=== PATIENT | female | born 1935 | race Caucasian/White ===

== ENCOUNTER 2022-01-06 12:43 | Observation (INO) ==
[2022-01-06] MEDS ORDERED: SODIUM CHLORIDE 0.9% 1000ML 1,000 ML IV SCH ×2 (13:00→20:37)
--- NOTE | 2022-01-06 13:33 | XRay Report ---
XR chest 1V portable CLINICAL HISTORY: Sepsis. COMPARISON STUDY: No previous studies for comparison. FINDINGS: Trace left pleural effusion is noted. There is no pneumothorax. No consolidation to suggest pneumonia is noted. Cardiac size is normal. Mediastinal contours are unremarkable. Mild interstitial thickening is likely within normal limits. IMPRESSION: 1. Trace left pleural effusion. 2. No consolidation to suggest pneumonia. 3. Mild interstitial thickening, likely within normal limits. ACT 112: Negative or not required by law. Electronically signed by: Juan Carlos Rueda M.D. 01/06/2022 1:31 PM
[2022-01-06 13:51] LABS: INR 1.1 (0.9-1.1); Partial Thromboplastin Ratio 1.1; Partial Thromboplastin Time 29.2 Seconds (21.0-31.0); Prothrombin Time 12.1 Seconds (9.0-12.0)
[2022-01-06 14:04] LABS: Albumin Globulin Ratio 0.9 (0.9-2); Albumin Level 3.2 gm/dl (3.4-5.0); BUN Creatinine Ratio 20.4 (10-20); Bilirubin,Total 0.8 mg/dl (0.2-1.0); Calcium 8.3 mg/dl (8.5-10.1); Creatinine Clr Calc Pharmacy 14.6 ml/min; Est GFR (African American) 20.9 ml/min; Globulin 3.5 gm/dl (2.5-4.0); Magnesium 1.9 mg/dl (1.7-2.4); Potassium 3.3 mmol/L (3.5-5.1); Total Protein 6.7 gm/dl (6.0-8.3)
[2022-01-06 14:12] LABS: Hematocrit (blood only) 37.8 % (34.1-44.9); Hemoglobin 12.9 g/dl (12.0-16.0); Mean Corpuscular Hgb Conc 34.1 g/dL (32.0-36.0); Mean Corpuscular Volume 90.9 fL (80.0-100.0); Mean Platelet Volume 12.4 fL (9.4-12.3); Platelet Count 74 K/uL (130-400); RDW Coefficient of Variation 13.4 % (11.5-14.5); RDW Standard Deviation 45.1 fL (36.4-46.3); Red Blood Count 4.16 M/uL (3.93-5.22); White Blood Count 4.82 K/ul (4.8-10.8)
[2022-01-06 14:13] LABS: Anaplasmosis Smear(Rpt to DOH) Pos for Anaplasma
[2022-01-06 14:19] LABS: Basophils # (auto) 0.05 K/uL (0-0.2); Immature Granulocytes # (auto) 0.06 K/uL (0.00-0.02); Immature Granulocytes % (auto) 1.2 %; Lymphocytes # (auto) 1.12 K/uL (1.2-3.4); Lymphocytes % (auto) 23.2 %; Monocytes # (auto) 0.13 K/uL (0.24-0.82); Monocytes % (auto) 2.7 %; Neutrophils # (auto) 3.46 K/uL (1.4-6.5); Neutrophils % (auto) 71.9 %; Toxic Vacuolation 2+
[2022-01-06 14:57] LABS: Influenza A virus by PCR Negative (Neg); Influenza B virus by PCR Negative (Neg); RSV by PCR Negative (Neg); SARS CoV2 RNA(COVID-19) InHosp NEGATIVE (Negative)
[2022-01-06 15:17] LABS: Appearance Urine Clear (Clear); Bacteria Urine Automated Negative (Negative); Bilirubin Urine Negative (Negative); Blood Urine Negative (Negative); Color Urine Yellow; Epithelial Cell Urine Auto >30 /lpf (0-5); Glucose Urine UA Negative (Negative); Ketones Urine Negative (Negative); Leukocyte Esterase Urine Negative (Negative); Nitrite Urine Negative (Negative); Protein Urine Trace (Negative); RBC Urine Automated 0-4 /hpf (0-4); Specific Gravity Urine 1.009 (1.000-1.030); Urobilinogen Urine Negative (Negative)
[2022-01-06] MEDS ORDERED: SODIUM CHLORIDE 0.9% 1000ML 500 ML IV ONE (15:24)
[2022-01-06] MEDS ORDERED: DOXYCYCLINE HYCLATE 100 MG in DEXTROSE 5% 100 ML IV STA (15:24)
[2022-01-06] MEDS ORDERED: SODIUM CHLORIDE 0.9% 500 ML IV SCH (15:30)
--- NOTE | 2022-01-06 17:38 | Emergency Department Note ---
History of Present Illness General Chief complaint: Dehydration Stated complaint: DEHYDRATED, HIGH FEVER ON AND OFF, HYPERTENSION Time Seen by Provider: 01/06/22 12:53 History of Present Illness Provider complaint: Fever Onset (ago): week(s) 1 Radiation: non-radiation Associated symptoms: + fever/chills and + weakness; no cough, no headaches, no nausea/vomiting, no rash or no shortness of breath 86-year-old female presents emergency department with daughters for fever. Patient's daughters report that the patient has had fevers on and off for the last week. They report T-max of 102.8. They report the patient has chronic Lyme disease. They report that the patient was seen at a [facility] emergency department where they "did nothing". They report that they went to an urgent care today who told her that she was dehydrated and referred her to the emergency department. Home Medications Medication Instructions Recorded Confirmed Type levothyroxine 75 mcg tablet 75 mcg PO DAILY 01/06/22 01/06/22 History losartan 25 mg tablet 25 mg PO DAILY 01/06/22 01/06/22 History naproxen 500 mg tablet 500 mg PO BID 01/06/22 01/06/22 History sodium chloride 5 % eye drops 1 drp ophthalmic (eye) BID 01/06/22 01/06/22 History (Chay 128) Allergies Allergy/AdvReac Type Severity Reaction Status Date / Time erythromycin base Allergy Swelling Verified 01/06/22 15:33 of the Eye ibuprofen Allergy Rash Verified 01/06/22 15:33 sulfamethoxazole Allergy Rash Verified 01/06/22 15:31 [From Bactrim] trimethoprim [From Bactrim] Allergy Rash Verified 01/06/22 15:31 Past Med/Surg History Medical History HTN (hypertension) Hypothyroidism Lyme disease hx of chronic Lyme Surgical History No pertinent past surgical history Family History Father Macular degeneration Mother Macular degeneration Stroke Social History Smoking Status: Never smoker Hx Alcohol Use: No Feels Safe at Home: Yes Review of Systems A total of 10 systems reviewed and were otherwise negative Physical Exam Vital Signs Vital Signs - 24 hr 01/06/22 12:47 01/06/22 13:33 01/06/22 13:36 Temperature 36.5 C Temperature Source Skin Pulse Rate 89 Pulse Rate [Apical] 82 Respiratory Rate 18 18 Respiratory Effort / Characteristics Non-Labored Spontaneous Non-Labored Spontaneous Non-Labored Spontaneous Respiratory Depth Normal Normal Respiratory Pattern Regular Blood Pressure 78/44 L Blood Pressure [Left Arm] 104/51 L Blood Pressure Mean 55 Blood Pressure Mean [Left Arm] 68 Blood Pressure Position Sitting Blood Pressure Position [Left Arm] Lying Pulse Oximetry 95 98 Oxygen Delivery Method Room Air Room Air Sepsis Recent Fever Within 48 Hours No Sepsis New/Unexplained Change in Mental Status No Sepsis Action Taken by Nursing No Action Required 01/06/22 13:50 01/06/22 14:54 01/06/22 14:54 Temperature Temperature Source Pulse Rate Pulse Rate [Apical] 83 90 Respiratory Rate 18 18 Respiratory Effort / Characteristics Non-Labored Non-Labored Spontaneous Non-Labored Spontaneous Respiratory Depth Normal Normal Respiratory Pattern Blood Pressure Blood Pressure [Left Arm] 101/56 L 104/57 L Blood Pressure Mean Blood Pressure Mean [Left Arm] 71 72 Blood Pressure Position Blood Pressure Position [Left Arm] Lying Lying Pulse Oximetry 96 97 Oxygen Delivery Method Room Air Room Air Sepsis Recent Fever Within 48 Hours Sepsis New/Unexplained Change in Mental Status Sepsis Action Taken by Nursing 01/06/22 17:06 Temperature Temperature Source Pulse Rate Pulse Rate [Apical] 89 Respiratory Rate 16 Respiratory Effort / Characteristics Non-Labored Spontaneous Respiratory Depth Normal Respiratory Pattern Blood Pressure Blood Pressure [Left Arm] 89/53 L Blood Pressure Mean Blood Pressure Mean [Left Arm] 65 Blood Pressure Position Blood Pressure Position [Left Arm] Lying Pulse Oximetry 95 Oxygen Delivery Method Room Air Sepsis Recent Fever Within 48 Hours Sepsis New/Unexplained Change in Mental Status Sepsis Action Taken by Nursing Physical Exam HENT: Exam performed. -Head: Normocephalic and atraumatic. -Right Ear: External ear normal. No mastoid tenderness. -Left Ear: External ear normal. No mastoid tenderness. -Mouth/Throat: The oropharynx is clear and moist. No trismus in the jaw. No dental abscesses or uvula swelling. No oropharyngeal exudate or tonsillar abscesses. EYES: Conjunctivae and EOM are normal. Pupils are equal, round, and reactive to light. Right eye exhibits no discharge. Left eye exhibits no discharge. No scleral icterus. NECK: Normal range of motion. Neck supple. No JVD present. No spinous process tenderness present. No carotid bruit present. No rigidity. No tracheal deviation and normal range of motion present. No Brudzinski's sign and no Kernig's sign noted. CV: Normal rate, regular rhythm, normal heart sounds and intact distal pulses. T here is no peripheral edema. Palpable radial pulses bue. PULM/CHEST: Effort normal and breath sounds normal. No respiratory distress. No stridor. She has no wheezes. She has no rales. -Chest Wall: She exhibits no tenderness. ABD: The abdomen is soft. Bowel sounds are normal. She has no distension. No mass is present. There is no tenderness. There is no rebound, no guarding, no Fernandez's sign and no tenderness at McBurney's point. Rovsig negative MUSC/SKEL: Normal range of motion. There is no peripheral edema, tenderness or deformity. LYMPH: No cervical adenopathy. NEURO: Motor and sensation grossly intact. Course Course 1253: The patient was evaluated in room C7. A complete history and physical exam was performed Cardiac monitoring: An order was placed for continuous cardiac monitoring. The monitor shows a rate of 90 with sinus rhythm 1600: Vital signs stable. Patient hypotensive. Repeat IV fluids ordered for the patient. Labs show that the patient has acute kidney injury and hyponatremia. Patient's blood smear is positive for anaplasmosis. Patient be treated with IV doxycycline and admitted to the [facility] team. Para service notified. Administered Medications Sodium Chloride (Nss) 500 mls @ 125 mls/hr IV .Q4H CHANNING Stop: 02/05/22 15:29 Last Admin: 01/06/22 16:42 Dose: 125 mls/hr Documented By: DARLENE Doxycycline Hyclate 100 mg/ (Dextrose) 110 mls @ 50 mls/hr IV NOW [facility] Stop: 01/06/22 17:35 Last Admin: 01/06/22 15:44 Dose: 50 mls/hr Documented By: DARLENE Discontinued Medications Sodium Chloride (Nss 1000ml) 1,000 mls @ 999 mls/hr IV .Q1H1M [facility]ANNING Stop: 01/06/22 14:00 Last Infusion: 01/06/22 14:07 Dose: 0 mls/hr Documented By: Admin: 01/06/22 13:05 Dose: 999 mls/hr Documented By: MARGARITA Sodium Chloride (Nss 1000ml) 500 mls @ 999 mls/hr IV .Q31M ONE Stop: 01/06/22 15:54 Last Infusion: 01/06/22 16:08 Dose: 0 mls/hr Documented By: Admin: 01/06/22 15:31 Dose: 999 mls/hr Documented By: DARLENE Medical Decision Making Laboratory Data Result diagrams: 01/06/22 13:00 01/06/22 13:00 Lab Results 01/06/22 01/06/22 01/06/22 Range/Units 13:00 13:00 13:00 WBC 4.82 (4.8-10.8) K/ul RBC 4.16 (3.93-5.22) M/uL Hgb 12.9 (12.0-16.0) g/dl Hct 37.8 (34.1-44.9) % MCV 90.9 (80.0-100.0) fL MCH 31.0 (25.0-34.0) pg MCHC 34.1 (32.0-36.0) g/dL RDW Std Deviation 45.1 (36.4-46.3) fL RDW Coeff of Samantha 13.4 (11.5-14.5) % Plt Count 74 L (130-400) K/uL MPV 12.4 H (9.4-12.3) fL Immature Gran % (Auto) 1.2 % Neut % (Auto) 71.9 % Lymph % (Auto) 23.2 % Freestone % (Auto) 2.7 % Eos % (Auto) 0.0 % Baso % (Auto) 1.0 % Neut # (Auto) 3.46 (1.4-6.5) K/uL Lymph # (Auto) 1.12 L (1.2-3.4) K/uL Fre[place] # (Auto) 0.13 L (0.24-0.82) K/uL Eos # (Auto) 0.00 (0-0.50) K/uL Baso # (Auto) 0.05 (0-0.2) K/uL Immature Gran # (Auto) 0.06 H (0.00-0.02) K/uL Toxic Vacuolation 2+ PT 12.1 H (9.0-12.0) Seconds INR 1.1 (0.9-1.1) APTT 29.2 (21.0-31.0) Seconds PTT Ratio 1.1 Sodium (136-145) mmol/L Potassium (3.5-5.1) mmol/L Chloride (98-107) mmol/L Carbon Dioxide (21-32) mmol/L Anion Gap (3-11) BUN (6-23) mg/dl Creatinine (0.6-1.2) mg/dl Est Cr Clr Drug Dosing ml/min Est GFR ( Amer) ml/min Est GFR (Non-Af Amer) ml/min BUN/Creatinine Ratio (10-20) Glucose (70-99(Fasting)) mg/dl Osmolality (280-300) mOsm/kg Lactate (0.4-2.0) mmol/L Calcium (8.5-10.1) mg/dl Magnesium (1.7-2.4) mg/dl Total Bilirubin (0.2-1.0) mg/dl AST (13-39) U/L ALT (7-52) U/L Alkaline Phosphatase (34-104) U/L Total Protein (6.0-8.3) gm/dl Albumin (3.4-5.0) gm/dl Globulin (2.5-4.0) gm/dl Albumin/Globulin Ratio (0.9-2) Procalcitonin 0.61 H (0-0.5) ng/ml Urine Color Urine Appearance (Clear) Urine pH (4.5-7.5) Ur Specific [place] (1.000-1.030) Urine Protein (Negative) Urine Glucose (UA) (Negative) Urine Ketones (Negative) Urine Blood (Negative) Urine Nitrite (Negative) Urine Bilirubin (Negative) Urine Urobilinogen (Negative) Ur Leukocyte Esterase (Negative) Urine WBC (Auto) (0-5) /hpf Urine RBC (Auto) (0-4) /hpf U Hyaline Cast (Auto) (0-5) /lpf U Epithel Cells (Auto) (0-5) /lpf Urine Bacteria (Auto) (Negative) Anaplasma Smear See Comment A Anaplasma Comment Pos for Anaplasma SARS-CoV-2 (PCR) (Negative) Influenza Type A (PCR) (Neg) Influenza Type B (PCR) (Neg) RSV (RT-PCR) (Neg) 01/06/22 01/06/22 01/06/22 Range/Units 13:00 13:00 14:01 WBC (4.8-10.8) K/ul RBC (3.93-5.22) M/uL Hgb (12.0-16.0) g/dl Hct (34.1-44.9) % MCV (80.0-100.0) fL MCH (25.0-34.0) pg MCHC (32.0-36.0) g/dL RDW Std Deviation (36.4-46.3) fL RDW Coeff of Samantha (11.5-14.5) % Plt Count (130-400) K/uL MPV (9.4-12.3) fL Immature Gran % (Auto) % Neut % (Auto) % Lymph % (Auto) % Freestone % (Auto) % Eos % (Auto) % Baso % (Auto) % Neut # (Auto) (1.4-6.5) K/uL Lymph # (Auto) (1.2-3.4) K/uL Fre[place] # (Auto) (0.24-0.82) K/uL Eos # (Auto) (0-0.50) K/uL Baso # (Auto) (0-0.2) K/uL Immature Gran # (Auto) (0.00-0.02) K/uL Toxic Vacuolation PT (9.0-12.0) Seconds INR (0.9-1.1) APTT (21.0-31.0) Seconds PTT Ratio Sodium 127 L (136-145) mmol/L Potassium 3.3 L (3.5-5.1) mmol/L Chloride 95 L (98-107) mmol/L Carbon Dioxide 23 (21-32) mmol/L Anion Gap 9 (3-11) BUN 48 H (6-23) mg/dl Creatinine 2.35 H (0.6-1.2) mg/dl Est Cr Clr Drug Dosing 14.6 ml/min Est GFR ( Amer) 20.9 ml/min Est GFR (Non-Af Amer) 18.0 ml/min BUN/Creatinine Ratio 20.4 H (10-20) Glucose 211 H (70-99(Fasting)) mg/dl Osmolality 285 (280-300) mOsm/kg Lactate (0.4-2.0) mmol/L Calcium 8.3 L (8.5-10.1) mg/dl Magnesium 1.9 (1.7-2.4) mg/dl Total Bilirubin 0.8 (0.2-1.0) mg/dl AST 53 H (13-39) U/L ALT 31 (7-52) U/L Alkaline Phosphatase 91 (34-104) U/L Total Protein 6.7 (6.0-8.3) gm/dl Albumin 3.2 L (3.4-5.0) gm/dl Globulin 3.5 (2.5-4.0) gm/dl Albumin/Globulin Ratio 0.9 (0.9-2) Procalcitonin (0-0.5) ng/ml Urine Color Urine Appearance (Clear) Urine pH (4.5-7.5) Ur Specific [place] (1.000-1.030) Urine Protein (Negative) Urine Glucose (UA) (Negative) Urine Ketones (Negative) Urine Blood (Negative) Urine Nitrite (Negative) Urine Bilirubin (Negative) Urine Urobilinogen (Negative) Ur Leukocyte Esterase (Negative) Urine WBC (Auto) (0-5) /hpf Urine RBC (Auto) (0-4) /hpf U Hyaline Cast (Auto) (0-5) /lpf U Epithel Cells (Auto) (0-5) /lpf Urine Bacteria (Auto) (Negative) Anaplasma Smear Anaplasma Comment SARS-CoV-2 (PCR) NEGATIVE (Negative) Influenza Type A (PCR) Negative (Neg) Influenza Type B (PCR) Negative (Neg) RSV (RT-PCR) Negative (Neg) 01/06/22 01/06/22 Range/Units 14:51 15:43 WBC (4.8-10.8) K/ul RBC (3.93-5.22) M/uL Hgb (12.0-16.0) g/dl Hct (34.1-44.9) % MCV (80.0-100.0) fL MCH (25.0-34.0) pg MCHC (32.0-36.0) g/dL RDW Std Deviation (36.4-46.3) fL RDW Coeff of Samantha (11.5-14.5) % Plt Count (130-400) K/uL MPV (9.4-12.3) fL Immature Gran % (Auto) % Neut % (Auto) % Lymph % (Auto) % [place] % (Auto) % Eos % (Auto) % Baso % (Auto) % Neut # (Auto) (1.4-6.5) K/uL Lymph # (Auto) (1.2-3.4) K/uL [place] # (Auto) (0.24-0.82) K/uL Eos # (Auto) (0-0.50) K/uL Baso # (Auto) (0-0.2) K/uL Immature Gran # (Auto) (0.00-0.02) K/uL Toxic Vacuolation PT (9.0-12.0) Seconds INR (0.9-1.1) APTT (21.0-31.0) Seconds PTT Ratio Sodium (136-145) mmol/L Potassium (3.5-5.1) mmol/L Chloride (98-107) mmol/L Carbon Dioxide (21-32) mmol/L Anion Gap (3-11) BUN (6-23) mg/dl Creatinine (0.6-1.2) mg/dl Est Cr Clr Drug Dosing ml/min Est GFR ( Amer) ml/min Est GFR (Non-Af Amer) ml/min BUN/Creatinine Ratio (10-20) Glucose (70-99(Fasting)) mg/dl Osmolality (280-300) mOsm/kg Lactate 1.2 (0.4-2.0) mmol/L Calcium (8.5-10.1) mg/dl Magnesium (1.7-2.4) mg/dl Total Bilirubin (0.2-1.0) mg/dl AST (13-39) U/L ALT (7-52) U/L Alkaline Phosphatase (34-104) U/L Total Protein (6.0-8.3) gm/dl Albumin (3.4-5.0) gm/dl Globulin (2.5-4.0) gm/dl Albumin/Globulin Ratio (0.9-2) Procalcitonin (0-0.5) ng/ml Urine Color Yellow Urine Appearance Clear (Clear) Urine pH 5.0 (4.5-7.5) Ur Specific [place] 1.009 (1.000-1.030) Urine Protein Trace H (Negative) Urine Glucose (UA) Negative (Negative) Urine Ketones Negative (Negative) Urine Blood Negative (Negative) Urine Nitrite Negative (Negative) Urine Bilirubin Negative (Negative) Urine Urobilinogen Negative (Negative) Ur Leukocyte Esterase Negative (Negative) Urine WBC (Auto) 1-5 (0-5) /hpf Urine RBC (Auto) 0-4 (0-4) /hpf U Hyaline Cast (Auto) 10-30 H (0-5) /lpf U Epithel Cells (Auto) >30 H (0-5) /lpf Urine Bacteria (Auto) Negative (Negative) Anaplasma Smear Anaplasma Comment SARS-CoV-2 (PCR) (Negative) Influenza Type A (PCR) (Neg) Influenza Type B (PCR) (Neg) RSV (RT-PCR) (Neg) Imaging Data Radiologist's Impression: Chest X-Ray 01/06/22 12:54 XR chest 1V portable CLINICAL HISTORY: Sepsis. COMPARISON STUDY: No previous studies for comparison. FINDINGS: Trace left pleural effusion is noted. There is no pneumothorax. No consolidation to suggest pneumonia is noted. Cardiac size is normal. Mediastinal contours are unremarkable. Mild interstitial thickening is likely within normal limits. IMPRESSION: 1. Trace left pleural effusion. 2. No consolidation to suggest pneumonia. 3. Mild interstitial thickening, likely within normal limits. ACT 112: Negative or not required by law. Electronically signed by: Juan Carlos Rueda M.D. 01/06/2022 1:31 PM [facility] Narrative 1253: The patient was evaluated in room C7. A complete history and physical exam was performed Cardiac monitoring: An order was placed for continuous cardiac monitoring. The monitor shows a rate of 90 with sinus rhythm 1600: Vital signs stable. Patient hypotensive. Repeat IV fluids ordered for the patient. Labs show that the patient has acute kidney injury and hyponatremia. Patient's blood smear is positive for anaplasmosis. Patient be treated with IV doxycycline and admitted to the [facility] team. Para service notified. Impression & Plan Anaplasmosis, Hyponatremia, CASTILLO (acute kidney injury) Discharge Plan Visit Data Chief Complaint: Dehydration Stated Complaint: DEHYDRATED, HIGH FEVER ON AND OFF, HYPERTENSION ED Provider: Hipolito Dyer Discharge Problem: Anaplasmosis, Hyponatremia, CASTILLO (acute kidney injury) Patient Disposition: Admitted As Inpatient Forms Stand Alone Forms: [facility] Prescriptions Prescriptions: No Action sodium chloride [Chay 128] 5 % Drops 1 drp OPHTHALMIC (EYE) BID levothyroxine 75 mcg Tablet 75 mcg PO DAILY losartan 25 mg Tablet 25 mg PO DAILY naproxen 500 mg Tablet 500 mg PO BID Referrals Referrals: PCP,NO [Primary Care Provider] -
--- NOTE | 2022-01-06 17:49 | History & Physical Report ---
Date of Service January 06, 2022 By CMS guidelines, a determination that the admission or continued stay is not medically necessary has been made by a member of the UR committee and a physician for this hospital stay, therefore a Code 44 will be completed and the Inpatient admission will be changed to outpatient. Assessment & Plan (1) CASTILLO (acute kidney injury): (2) Hyponatremia: (3) Hypokalemia: Plan: Admit to [facility] Patient presenting from home with reports of worsening right hip pain, generalized weakness, poor appetite, nausea In the ED, labs show Na+ 127, K+ 3.3, creatinine 2.3, + anaplasma smear. Patient denies history of chronic kidney disease, no outside records available to review. CASTILLO likely multifactorial due to poor p.o. intake in combination with use of naproxen and losartan. Likely hypovolemic hyponatremia in the setting of poor p.o. intake. Check urine and serum osmolality, urine electrolytes NSS @ 80/hr, serial BMPs Replace potassium Hold losartan (4) Hypotension: Plan: BP 78/44 on presentation Likely due to hypovolemia Improved with IVF Continue IVF, hold losartan (5) Anaplasmosis: Plan: + Anaplasma smear with mild thrombocytopenia and mildly elevated AST Check Lyme Doxycycline 100mg BID (6) Right hip pain: Plan: Per patient, she had XR at outside hospital that was negative for fracture but showed severe osteoarthritis CT right hip to evaluate for possible fracture Ortho consult for possible injection (7) HTN (hypertension): Plan: Due to hypotension, CASTILLO hold losartan (8) Hypothyroidism: Plan: Continue levothyroxine (9) DVT prophylaxis: Plan: SCDs due to thrombocytopenia History of Present Illness Chief Complaint: Weakness, nausea Primary Care Provider: [facility] 86-year-old female with PMH HTN, hypothyroidism, chronic Lyme disease, and other problems listed below who presents the ED for evaluation of generalized weakness and nausea. Patient reports current illness began about 1 week ago when she woke up and had severe right hip pain. Pain has persisted throughout the week. Patient also notes worsening generalized weakness. She has slid off of the couch due to weakness a few times this week. No falls or specific trauma to the right hip. Patient has had a very poor appetite and associated nausea. Denies vomiting and abdominal pain. Was seen at another hospital 3 days ago and diagnosed with arthritis within the right hip. Patient received a Toradol injection with improvement in right hip pain. Patient reports having a fever for a few days earlier in this month, that has since resolved however over the past 1 week, patient's fevers have returned. Patient denies known tick bite however [place] and spends a lot of time outside. Patient denies chest pain or shortness of breath. No lightheadedness or dizziness. Denies urinary symptoms. Upon arrival to the ED, patient was hypotensive at 78/44, this improved after IVF. Labs show thrombocytopenia with platelet 74K, Na+ 127, K+ 3.3, creatinine 2.3, AST 53. Anaplasma smear is positive. Patient was given IVF and IV doxycycline. Allergies Allergy/AdvReac Type Severity Reaction Status Date / Time erythromycin base Allergy Swelling Verified 01/06/22 15:33 of the Eye ibuprofen Allergy Rash Verified 01/06/22 15:33 sulfamethoxazole Allergy Rash Verified 01/06/22 15:31 [From Bactrim] trimethoprim [From Bactrim] Allergy Rash Verified 01/06/22 15:31 Home Medications Medication Instructions Recorded Confirmed Type levothyroxine 75 mcg tablet 75 mcg PO DAILY 01/06/22 01/06/22 History losartan 25 mg tablet 25 mg PO DAILY 01/06/22 01/06/22 History sodium chloride 5 % eye drops 1 drp ophthalmic (eye) BID 01/06/22 01/06/22 History (Chay 128) acetaminophen 325 mg tablet 650 mg PO Q8H PRN fever or pain 01/07/22 Rx #30 tabs doxycycline hyclate 100 mg tablet 100 mg PO BID 10 days #20 tabs 01/07/22 Rx lidocaine 5 % topical patch 1 patch transdermal QAM pain #10 ea 01/07/22 Rx Past Med/Surg History Medical History HTN (hypertension) Hypothyroidism Lyme disease hx of chronic Lyme Surgical History No pertinent past surgical history Family History Father Macular degeneration Mother Macular degeneration Stroke Social History Smoking Status: Never smoker Second Hand Exposure: No; Hx Alcohol Use: No Hx Substance Use: No Preferred Language: Monegasque Communication Ability: Effective Engagement Quality Consultant Required: No Beliefs That Will Affect Care: None Current Living Situation: Spouse Feels Safe at Home: Yes Assistive Devices: Cane and Walker Review of Systems Review of Systems: ROS per HPI, all other systems reviewed and negative Physical Exam Constitutional: WD/WN, vitals as above Eyes: PERRL, conjunctivae normal, anicteric sclerae ENMT: external ear and nose normal, oropharynx normal Respiratory: normal respiratory effort, lungs clear to auscultation Cardiovascular: Rate/Rhythm: regular rate and regular rhythm Vessels: normal peripheral pulses Extremities: no edema Gastrointestinal (Abdomen): normal bowel sounds, soft, nontender, no hepatosplenomegaly Musculoskeletal: Extremities: no cyanosis and no clubbing Generally weak throughout, has some difficulty sitting up in bed unassisted, however observed patient walking back from bathroom with walker Skin: no rashes, warm and dry Neurologic: PERRL, EOMI, accommodation nl, no face palsy, no dysarthria Psychiatric: A+Ox3, euthymic affect Results & Data Results & Data ([facility]) Vital Signs (Past 12 Hours) Vital Signs Temp Pulse Pulse Resp BP BP Pulse Ox 01/06/22 17:06 89 16 89/53 L 95 01/06/22 14:54 90 18 104/57 L 97 01/06/22 13:50 83 18 101/56 L 96 01/06/22 13:33 82 18 104/51 L 98 01/06/22 12:47 36.5 C 89 18 78/44 L 95 O2 Del Method 01/06/22 17:06 Room Air 01/06/22 14:54 Room Air 01/06/22 13:50 Room Air 01/06/22 13:33 Room Air 01/06/22 12:47 Room Air Laboratory Results Short CBC 01/06/22 Range/Units 13:00 WBC 4.82 (4.8-10.8) K/ul Hgb 12.9 (12.0-16.0) g/dl Hct 37.8 (34.1-44.9) % Plt Count 74 L (130-400) K/uL BMP 01/06/22 13:00 Sodium 127 L Potassium 3.3 L Chloride 95 L Carbon Dioxide 23 BUN 48 H Creatinine 2.35 H Glucose 211 H Calcium 8.3 L Liver Function 01/06/22 Range/Units 13:00 Total Bilirubin 0.8 (0.2-1.0) mg/dl AST 53 H (13-39) U/L ALT 31 (7-52) U/L Alkaline Phosphatase 91 (34-104) U/L Albumin 3.2 L (3.4-5.0) gm/dl Urine 01/06/22 Range/Units 14:51 Urine Color Yellow Urine Appearance Clear (Clear) Urine pH 5.0 (4.5-7.5) Ur Specific [place] 1.009 (1.000-1.030) Urine Protein Trace H (Negative) Urine Glucose (UA) Negative (Negative) Diagnostic Findings Short CBC 01/06/22 Range/Units 13:00 WBC 4.82 (4.8-10.8) K/ul Hgb 12.9 (12.0-16.0) g/dl Hct 37.8 (34.1-44.9) % Plt Count 74 L (130-400) K/uL BMP 01/06/22 13:00 Sodium 127 L Potassium 3.3 L Chloride 95 L Carbon Dioxide 23 BUN 48 H Creatinine 2.35 H Glucose 211 H Calcium 8.3 L Liver Function 01/06/22 Range/Units 13:00 Total Bilirubin 0.8 (0.2-1.0) mg/dl AST 53 H (13-39) U/L ALT 31 (7-52) U/L Alkaline Phosphatase 91 (34-104) U/L Albumin 3.2 L (3.4-5.0) gm/dl Urine 01/06/22 Range/Units 14:51 Urine Color Yellow Urine Appearance Clear (Clear) Urine pH 5.0 (4.5-7.5) Ur Specific [place] 1.009 (1.000-1.030) Urine Protein Trace H (Negative) Urine Glucose (UA) Negative (Negative) Code Status & VTE Plan Code Status Patient is a full code as per my discussion with her. VTE Prophylaxis Plan VTE Prophylaxis will be ordered: Yes Supervising Physician Co-Signing Physician Notes Pt was seen and examined. Agreed with Beverly CAPONE exam, assessment and plan. 86-year-old female with PMH HTN, hypothyroidism, chronic Lyme disease presents to the ED for evaluation of generalized weakness and nausea. Pt said symptoms have been going for about 1 week when she woke up with severe right hip pain. She said that she has been feeling week with poor appetite. She said that she had a fever few days ago. She was seen at another ER 3 days ago where she got a toradol injection to her right hip> she was discharged on Naproxen. She said that pain and weakness are worsening. Lab on admission with with low platelet 74K, Na+ 127, K+ 3.3, creatinine 2.3, AST 53. Anaplasma smear is positive. Patient was given IVF and IV doxycycline. Outpatient Hip Xray showed severe arthritis within the right hip. Will continue pain control. Continue IVF. Continue monitor electrolytes. Will consult ortho and PT/OT. Fall precaution. Will hod Losartan and avoid nephrotoxic agents. Continue monitor closely. MD Christel
[2022-01-06 17:56] LABS: Urine Chloride < 15 mmol/L; Urine Potassium 15.4 mmol/L; Urine Sodium 11 mmol/L
[2022-01-06 18:03] LABS: Lyme Ab IgG w/WB Rflx Positive (Negative); Lyme Ab IgM w/WB Rflx Positive (Negative)
--- NOTE | 2022-01-06 18:31 | CT Scan Report ---
RIGHT HIP CT WITHOUT CONTRAST CLINICAL HISTORY: Right hip pain. TECHNIQUE: Axial images of the right hip were obtained without IV contrast. Sagittal and coronal sofya nstructions were viewed. Automated exposure control was utilized for the study. A dose lowering vira hnique was utilized adhering to the principles of ALARA. COMPARISON STUDY: No previous studies for comparison. FINDINGS: A few suspected calcified fibroids are incidentally noted. Marked axial joint space narrowi ng of the right hip is noted with extensive subchondral sclerosis and cystic change within the acetab ulum and right femoral head. Acetabular protrusio deformity is noted. No acute fracture is present. T here are no suspicious osseous lesions. Adjacent soft tissues are unremarkable by CT. No evidence for avascular necrosis of the right femoral head. IMPRESSION: 1. 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 2. No acute fracture. ACT 112: Negative or not required by law. Electronically signed by: Juan Carlos Rueda M.D. 01/06/2022 6:29 PM
[2022-01-06] MEDS ORDERED: MoRPHine SULFATE 4 MG/ML 1 ML CARP\\VIAL IV PRN (20:37)
[2022-01-06] MEDS ORDERED: POTASSIUM CHLORIDE CRTAB 20 MEQ TABCR PO ONE (20:37)
[2022-01-06] MEDS ORDERED: MoRPHine SULFATE 2 MG/ML CARP IV PRN (20:37)
[2022-01-06] MEDS ORDERED: ACETAMINOPHEN 325 MG TAB PO PRN (20:37)
[2022-01-06 21:17] LABS: BUN Creatinine Ratio 30.1 (10-20); Calcium 7.4 mg/dl (8.5-10.1); Creatinine Clr Calc Pharmacy 23.4 ml/min; Est GFR (African American) 37.1 ml/min; Potassium 3.2 mmol/L (3.5-5.1)
[2022-01-06] MEDS: ACETAMINOPHEN 500 MG TAB PO SCH (21:40)
[2022-01-07] MEDS ORDERED: SODIUM CHLORIDE 0.9% 1000ML 1,000 ML IV ONE ×2 (01:10)
[2022-01-07] MEDS ORDERED: POTASSIUM CHLORIDE CRTAB 20 MEQ TABCR PO STA (01:24)
[2022-01-07] MEDS ORDERED: POTASSIUM CHLORIDE PWD 20 MEQ PACK PO STA (02:41)
[2022-01-07] MEDS: DOXYCYCLINE HYCLATE 100 MG in DEXTROSE 5% 100 ML IV SCH ×2 (04:27→15:41)
--- NOTE | 2022-01-07 05:53 | Electrocardiogram Report ---
Test Reason : Blood Pressure : / mmHG Vent. Rate : 082 BPM Atrial Rate : 054 BPM P-R Int : 272 ms QRS Dur : 156 ms QT Int : 452 ms P-R-T Axes : 000 -06 131 degrees QTc Int : 528 ms Possible Sinus rhythm with 1st degree A-V block Left bundle branch block Abnormal ECG No previous ECGs available Confirmed by Mohit Mena ([id number]) on 01/07/2022 5:53:21 AM Referred By: Confirmed By:Mohit Mena
[2022-01-07] MEDS: ACETAMINOPHEN 500 MG TAB PO SCH ×2 (06:04→13:35)
[2022-01-07] MEDS ORDERED: LEVOTHYROXINE SODIUM 75 MCG TABLET PO SCH (06:30)
[2022-01-07 07:59] LABS: Hemoglobin 10.7 g/dl (12.0-16.0); Mean Corpuscular Hemoglobin 30.8 pg (25.0-34.0); Mean Corpuscular Hgb Conc 34.5 g/dL (32.0-36.0); Mean Corpuscular Volume 89.3 fL (80.0-100.0); Platelet Count 68 K/uL (130-400); RDW Coefficient of Variation 13.6 % (11.5-14.5); RDW Standard Deviation 44.7 fL (36.4-46.3); Red Blood Count 3.47 M/uL (3.93-5.22); White Blood Count 5.27 K/ul (4.8-10.8)
[2022-01-07] MEDS ORDERED: LIDOCAINE 5% 1 PATCH TD SCH (09:00)
[2022-01-07 09:05] LABS: Potassium 4.4 mmol/L (3.5-5.1)
[2022-01-07 09:06] LABS: BUN Creatinine Ratio 28.5 (10-20); Calcium 7.9 mg/dl (8.5-10.1); Creatinine Clr Calc Pharmacy 26.3 ml/min; Est GFR (African American) 42.7 ml/min; Est GFR (Non-African American) 36.9 ml/min
--- NOTE | 2022-01-07 10:52 | Orthopedic Consultation ---
Date of Service January 07, 2022 Assessment & Plan (1) Osteoarthritis of right hip: We discussed diagnosis and treatment options at bedside. We can treat her with oral medications, intra-articular injections, or hip replacement surgery. Her hip is already feeling much better. An intra-articular hip injection would need to be done in our office. It is done under ultrasound guidance. Given the level of arthritis, symptomatic pain relief would likely be very temporary. We could also consider hip replacement surgery, however, she has already worn away much of the medial wall of her acetabulum and a replacement would be a little more risky. At this point she is feeling better and she said she wants to think about her options. I told her I be happy to see her in the office at any time. I would be able to either offer her an intra-articular hip injection or possibly hip replacement surgery, but we have to talk about the risks and benefits of each. She is orthopedically stable for discharge when medically ready. History of Present Illness Reason for Consultation: Osteoarthritis of the right hip. Requesting Physician: . Attending Physician: Rhett Kearney MD Trisha is a pleasant 86-year-old female who is been dealing with years of worsening right hip pain. She lives in a house with her and normally ambulates without assistance. Yesterday, she was having severe pain in her right groin. She has recently seen an orthopedic provider about this and was diagnosed with arthritis of the right hip. Her pain yesterday was severe enough that she came to the emergency room. A CT scan of the hip showed advanced osteoarthritis. She was admitted to the medical service. Overall her hip is already feeling better. She says she has been up and walking to the bathroom without much difficulty. Orthopedics was consulted to evaluate and treat.. Allergies Allergy/AdvReac Type Severity Reaction Status Date / Time erythromycin base Allergy Swelling Verified 01/06/22 15:33 of the Eye ibuprofen Allergy Rash Verified 01/06/22 15:33 sulfamethoxazole Allergy Rash Verified 01/06/22 15:31 [From Bactrim] trimethoprim [From Bactrim] Allergy Rash Verified 01/06/22 15:31 Home Medications Medication Instructions Recorded Confirmed Type levothyroxine 75 mcg tablet 75 mcg PO DAILY 01/06/22 01/06/22 History losartan 25 mg tablet 25 mg PO DAILY 01/06/22 01/06/22 History naproxen 500 mg tablet 500 mg PO BID 01/06/22 01/06/22 History sodium chloride 5 % eye drops 1 drp ophthalmic (eye) BID 01/06/22 01/06/22 History (Chay 128) Past Med/Surg History Medical History HTN (hypertension) Hypothyroidism Lyme disease hx of chronic Lyme Surgical History No pertinent past surgical history Family History Father Macular degeneration Mother Macular degeneration Stroke Social History Smoking Status: Never smoker Second Hand Exposure: No; Do You Dip or Chew Tobacco: No; Hx Alcohol Use: No Hx Substance Use: No Preferred Language: Mongolian Communication Ability: Effective Barrel Turner Required: No Beliefs That Will Affect Care: None Current Living Situation: Spouse Other Information That Helps Us Care for You: No Feels Safe at Home: Yes Safety Concerns: Feels Safe At This Time Assistive Devices: Glasses and Walker Assistive Devices Comment: reading glasses Review of Systems All systems reviewed & are unremarkable except as noted in HPI & below. Physical Exam On physical examination of the right hip, she has pain mostly in the right gluteal region. She does not have much pain laterally. She has active dorsiflexion plantarflexion of her right ankle. She has pain with internal and external rotation of her right hip.. Constitutional WD/WN, vitals as above Eyes PERRL, conjunctivae normal, anicteric sclerae ENMT external ear and nose normal, oropharynx normal Neck trachea midline, no thyromegaly Respiratory normal respiratory effort, lungs clear to auscultation Cardiovascular RRR, no murmur, no edema Gastrointestinal (Abdomen) normal bowel sounds, soft, nontender, no hepatosplenomegaly Skin no rashes, warm and dry Psychiatric A+Ox3, euthymic affect Results & Data Results & Data Laboratory Results . Diagnostic Findings CT scan of the right hip was reviewed and it showed advanced osteoarthritis with joint space narrowing, osteophyte formation, and [id number] articulation. There is severe thinning of the medial wall of the acetabulum.. PG Care Time/CCT Total # of Minutes Spent Total Time Spent with Patient: Total time spent is greater than 50% in coordination of care (as documented) at patient's floor/unit and/or counseling patient: Coding Level of Care Code 56448 Inpt Consult Level 4 Diagnoses Osteoarthritis of right hip M16.11
--- NOTE | 2022-01-07 17:53 | Discharge Summary ---
Date of Service January 07, 2022 Admission HPI Per Admitting Provider 86-year-old female with PMH HTN, hypothyroidism, chronic Lyme disease, and other problems listed below who presents the ED for evaluation of generalized weakness and nausea. Patient reports current illness began about 1 week ago when she woke up and had severe right hip pain. Pain has persisted throughout the week. Patient also notes worsening generalized weakness. She has slid off of the couch due to weakness a few times this week. No falls or specific trauma to the right hip. Patient has had a very poor appetite and associated nausea. Denies vomiting and abdominal pain. Was seen at another hospital 3 days ago and diagnosed with arthritis within the right hip. Patient received a Toradol injection with improvement in right hip pain. Patient reports having a fever for a few days earlier in this month, that has since resolved however over the past 1 week, patient's fevers have returned. Patient denies known tick bite [place] and spends a lot of time outside. P atient denies chest pain or shortness of breath. No lightheadedness or dizziness. Denies urinary symptoms. Upon arrival to the ED, patient was hypotensive at 78/44, this improved after IVF. Labs show thrombocytopenia with platelet 74K, Na+ 127, K+ 3.3, creatinine 2.3, AST 53. Anaplasma smear is positive. Patient was given IVF and IV doxycycline. Admission Exam Per Admitting Provider Constitutional: WD/WN, vitals as above Eyes: PERRL, conjunctivae normal, anicteric sclerae ENMT: external ear and nose normal, oropharynx normal Respiratory: normal respiratory effort, lungs clear to auscultation Cardiovascular: Rate/Rhythm: regular rate and regular rhythm Vessels: normal peripheral pulses Extremities: no edema Gastrointestinal (Abdomen): normal bowel sounds, soft, nontender, no hepatosplenomegaly Musculoskeletal: Extremities: no cyanosis and no clubbing Generally weak throughout, has some difficulty sitting up in bed unassisted, however observed patient walking back from bathroom with walker Skin: no rashes, warm and dry Neurologic: PERRL, EOMI, accommodation nl, no face palsy, no dysarthria Psychiatric: A+Ox3, euthymic affect Principal Diagnosis (1) CASTILLO (acute kidney injury): (2) Hyponatremia: (3) Hypokalemia: (4) Hypotension: (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 (7) HTN (hypertension): (8) Hypothyroidism: Discharge Exam General- No acute distress Head- atraumatic Eyes- PERRL, EOMI, ENT- oropharynx clear Neck- supple, no JVD Lungs- clear to auscultation Heart- regular rhythm; no murmur Abdomen- normal bowel sounds, soft, nontender Extremities- no calf tenderness Neuro- alert, oriented x 3; PERRL, EOMI; no facial palsy; no dysarthria Skin- warm & dry Discharge Data Allergies Allergy/AdvReac Type Severity Reaction Status Date / Time erythromycin base Allergy Swelling Verified 01/06/22 15:33 of the Eye ibuprofen Allergy Rash Verified 01/06/22 15:33 sulfamethoxazole Allergy Rash Verified 01/06/22 15:31 [From Bactrim] trimethoprim [From Bactrim] Allergy Rash Verified 01/06/22 15:31 Consultations 01/06/22 15:25 ED Decision to Admit Stat 01/06/22 20:37 Consult Orthopedic Surgery Routine Ordered Studies 01/06/22 17:15 CT hip RT wo con Routine RIGHT HIP CT WITHOUT CONTRAST CLINICAL HISTORY: Right hip pain. TECHNIQUE: Axial images of the right hip were obtained without IV contrast. Sagittal and coronal reconstructions were viewed. Automated exposure control was utilized for the study. A dose lowering technique was utilized adhering to the principles of ALARA. COMPARISON STUDY: No previous studies for comparison. FINDINGS: A few suspected calcified fibroids are incidentally noted. Marked axial joint space narrowing of the right hip is noted with extensive subchondral sclerosis and cystic change within the acetabulum and right femoral head. Acetabular protrusio deformity is noted. No acute fracture is present. There are no suspicious osseous lesions. Adjacent soft tissues are unremarkable by CT. No evidence for avascular necrosis of the right femoral head. IMPRESSION: 1. 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 2. No acute fracture. ACT 112: Negative or not required by law. Electronically signed by: Juan Carlos Rueda M.D. 01/06/2022 6:29 PM Dictated:01/06/221825 Transcribed: 01/06/221825 XR chest 1V portable CLINICAL HISTORY: Sepsis. COMPARISON STUDY: No previous studies for comparison. FINDINGS: Trace left pleural effusion is noted. There is no pneumothorax. No consolidation to suggest pneumonia is noted. Cardiac size is normal. Mediastinal contours are unremarkable. Mild interstitial thickening is likely within normal limits. IMPRESSION: 1. Trace left pleural effusion. 2. No consolidation to suggest pneumonia. 3. Mild interstitial thickening, likely within normal limits. ACT 112: Negative or not required by law. Electronically signed by: Juan Carlos Rueda M.D. 01/06/2022 1:31 PM Dictated:01/06/22 1330 Transcribed: 01/06/22 1330 Hospital Course (1) Right hip pain: Present on admission with worsening right hip pain, generalized weakness, poor appetite, nausea CT hip showed severe right hip osteoarthritis with associated acetabular protrusio deformity. Ortho on board recommended conservative management and pain control Ortho discussed about intra-articular injections under ultrasound guidance that can be arranged in the office , or hip replacement surgery. Continue PT/OT eval Fall precaution Pain improves significantly Ok from ortho standpoint to discharge (2) CASTILLO (acute kidney injury): Mostly due to oral poor intake in the setting of Hypotension, Naproxen/Losartan Creatinine on admission 2.3 Received IV fluid Losartan on hold Creatinine improved to 1.3 Continue to avoid nephrotoxic agents (3) Anaplasmosis: + Anaplasma smear with mild thrombocytopenia and mildly elevated AST Lyme titer for IgM and IgG positive Continue Doxycycline 100mg BID Western blot pending (4) Hyponatremia: Possible related to poor oral intake In the ED, labs show Na+ 127, K+ 3.3, creatinine 2.3, urine Na 11 Urine osmolarity low and Sodium osmolarity normal Received IVF Na improved to 134 today Check BMP in 1 week to monitor electrolytes (5) Hypokalemia: K 3.2 on admission Potassium 4.4 today Continue monitor BMP (6) Hypotension: BP 78/44 on presentation Likely due to hypovolemia Continue to hold losartan Continue monitor your blood pressure and bring your blood pressure log at your next follow up appointment with your provider (7) HTN (hypertension): BP was low on admission Continue to hold Losartan uue to hypotension and CASTILLO (8) Hypothyroidism: Continue levothyroxine Thrombocytopenia 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 ) Diet: Heart Healthy Addtl Attending Provider Instructions: Follow up with your primary care provider within 1 week Follow up with orthopedic dr. Romo to discuss either injections or hip replacement surgery if right hip pain does not improve Check BMP in 1 week to monitor your electrolytes and renal function Check CBC in 1 week to monitor your platelet count and hemoglobin Avoid any NSAID for now such as (motrin, aleve, naproxen, ibuprofen, Advil, Meloxicam, ...) due to the risk of kidney injury and bleeding from the low platelet OK with Tylenol 650mg three times daily as needed for pain Please hold Losartan for now due to low blood pressure and acute kidney injury ( your provider will advise you when to resume the losartan) Continue monitor your blood pressure and bring your blood pressure log at your next follow up with your provider Complete the course of the doxycycline Western blot for lyme disease pending ( confirmation test) fall precaution Seek medical attention if your symptoms worsening Addtl Computer Artist Provider Instructions: Orthopedics: Follow-up with Dr. Romo as needed to discuss either injections or hip replacement surgery. [facility] orthopedics [phone] Pending Studies at Discharge: Yes Studies:: Western blot for Lyme disease Stand-Alone Forms: My [email or web address], Smoking Cessation Medications and DC Order Prescriptions: New lidocaine 5 % Adhesive Patch,Medicated 1 patch transdermal QAM Qty: 10 0RF Rx Instructions: apply for 12 hrs on and off for 12 hrs doxycycline hyclate 100 mg tablet 100 mg PO BID 10 Days Qty: 20 0RF acetaminophen 325 mg Tablet 650 mg PO Q8H PRN (Reason: fever or pain) Qty: 30 0RF Continued sodium chloride [Chay 128] 5 % Drops 1 drp OPHTHALMIC (EYE) BID levothyroxine 75 mcg Tablet 75 mcg PO DAILY losartan 25 mg Tablet 25 mg PO DAILY Discontinued naproxen 500 mg Tablet 500 mg PO BID Discharge Orders: Discharge Order (Routine); Ordered 01/07/22 Ordered By: Rhett Kearney Admission Data Admit Date/Time: 01/06/22 16:43 Attending Provider: Rhett Kearney Admit Provider: Rhett Kearney Primary Care Provider: Komal Turner Other Providers: Rhett Kearney ; Jr Spencer Other Interventions: Discharge Summary Assessment (RN) Last Done: 01/07/22 17:58
[2022-01-07] MEDS ORDERED: DOXYCYCLINE HOME PACK 100 MG PO ONE (18:23)
[2022-01-08 17:16] LABS: 18KDIGG Band REACTIVE; 23KDIGG Band REACTIVE; 23KDIGM Band REACTIVE; 28KDIGG Band NON-REACTIVE; 30KDIGG Band NON-REACTIVE; 39KDIGG Band REACTIVE; 39KDIGM Band REACTIVE; 41KDIGG Band REACTIVE; 41KDIGM Band NON-REACTIVE; 45KDIGG Band NON-REACTIVE; 58KDIGG Band REACTIVE; 66KDIGG Band REACTIVE; 93KDIGG Band NON-REACTIVE; Lyme Antibodies, WB IgG POSITIVE (NEGATIVE); Lyme Antibodies, WB IgM POSITIVE (NEGATIVE)
== END 2022-01-07 19:29 | disposition home or self-care (01) ==
LOC: ED 12:43 → INTOOBSV 16:43 → 3E 16:43